=== PATIENT | female | born 1990 | race Caucasian/White ===

== ENCOUNTER 2021-06-24 08:16 | Inpatient (IN) ==
[2021-06-25] MEDS ORDERED: OXYTOCIN 30 UNITS/500 ML BAG IV PRN ×2 (13:28→13:38)
--- NOTE | 2021-06-25 13:53 | History & Physical Report ---
Date of Service June 25, 2021 Assessment & Plan (1) Encounter for induction of labor: (2) Gestational diabetes requiring insulin: (3) Large for gestational age fetus affecting management of mother: (4) Obesity affecting : Plan: 31yo Female at 39W1D here for IOL -will start pitocin -monitor vitals -GBS-, blood type O+ -patient aware she may request epidural Admission and Anticipated Discharge Date Admission Date: June 25, 2021 History of Present Illness Chief Complaint: Induction of Labor Primary Care Provider: Concepcion Urbina MD 31yo Female at 39W1D here for Induction of Labor, complicated by GDM on insulin, obesity, LGA . Patient states occasional contractions greater than every 10min apart, regular movement, denies any bleeding or discharge. Patient has had regular care, regular vitamins. Denies smoking or alcohol during . No other concerns at this time. Allergies Allergy/AdvReac Type Severity Reaction Status Date / Time No Known Allergies Allergy Verified 06/23/21 14:37 Home Medications Medication Instructions Recorded Confirmed Type prenat.vits,sergio,vec-bswc-swmbt 1 tab PO DAILY 11/13/20 06/25/21 History docusate sodium 100 mg capsule 100 mg PO BID 12/16/20 06/25/21 History (Colace) famotidine 20 mg tablet (Pepcid) 20 mg PO BID 12/16/20 06/25/21 History acetone (urine) test (Ketone Urine #50 ea 12/28/20 06/23/21 Rx Test) blood sugar diagnostic #150 ea 12/28/20 06/23/21 Rx lancets 33 gauge (OneTouch Delica #150 ea 12/29/20 06/23/21 Rx Lancets) insulin NPH isoph U-100 human 100 5 unit SUBCUT QPM #15 ml 05/27/21 06/25/21 Rx unit/mL (3 mL) subcutaneous pen (Novolin N Flexpen) pen needle, diabetic 32 gauge x #100 ea 05/27/21 06/23/21 Rx 5/32" (BD Ultra-Fine Joan Pen Needle) Patient History Medical History (Updated 06/25/21 @ 13:51 by Elva Guardado DO) History of chicken pox Ovarian cyst Surgical History S/P left oophorectomy S/P wisdom tooth extraction Family History (Updated 11/13/20 @ 09:03 by Natalee Cuellar) Grandmother (Paternal) Breast cancer Colorectal cancer Father Hypertension Mother Hypercholesteremia Denies family history of Ovarian cancer Social History (Updated 11/13/20 @ 09:05 by Natalee Cuellar) Smoking Status: Never smoker Second Hand Exposure: No; Do You Dip or Chew Tobacco: No; Hx Alcohol Use: No Hx Substance Use: No Preferred Language: Nigerian Communication Ability: Effective Crystallography Teacher Required: No Beliefs That Will Affect Care: None marital status: marital status details: Brain Ward (31) [phone] Current Living Situation: Spouse Current Living Situation Comment: lives with spouse, son, dog current occupational status: employed 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 Denies breast pain. Denies dysuria. Denies headache or changes in vision. Physical Exam Physical Exam: General: Alert, oriented. No acute distress. Cardiac: Regular rate and rhythm, no murmurs/rubs/gallops. Respiratory: Clear to auscultation bilaterally a/p, no wheezes/rales/rhonchi. No increased work of breathing. Symmetrical chest rise. No respiratory distress. Pelvic: Dilation 2.5cm; Effacement 50%; Station -[address] Brenner Lower Extremities: No lower extremity edema or swelling. No deep calf pain. Arina's negative bilaterally Baseline: 143 Variability: moderate Accelerations:present Decelerations:present Results & Data ([facility]) Vital Signs (Past 12 Hours) Vital Signs Temp Pulse Resp BP 06/25/21 13:31 37.3 C 100 H 18 130/88 06/25/21 13:19 100 H 130/88 Laboratory Results OB Labs: Blood Type O Positive 11/20/20 Antibody Screen NEGATIVE 11/20/20 Hemoglobin 12.1 g/dL (12.0-16.0) 11/20/20 Hematocrit 36.4 % (37-47) L 11/20/20 Mean Corpuscular Volume 87.1 fL (80-100) 11/20/20 Platelet Count 443 K/uL (130-400) H 11/20/20 Rubella IgG Antibody Immune (Immune) 11/20/20 Rapid Plasma Reagin Nonreactive (Nonreactive) 11/20/20 Hepatitis B Surface AntigenD Neg (Neg) 11/20/20 HIV (1&2) Ab and P24 Ag, 4th Gener Neg (Neg) 11/20/20 OB Optional Labs: Chlamydia trachomatis RNA NOT DETECTED (NOT DETECTED) 11/20/20 Neisseria gonorrhoeae RNA NOT DETECTED (NOT DETECTED) 11/20/20 Supervising Physician Co-Signing Physician Notes Resident Physician Supervision Note: I interviewed and examined the patient. Discussed with Dr. Guardado and agree with findings and plan as documented in the note. Any exceptions or clarifications are listed here: [None] Documented By: Nimisha Gibbs MD, FACOG Resident Activity Tracking Resident Involvement: Resident Care Provided Care Provided: Adult Hospital Medicine and OB Delivery
[2021-06-25 14:21] LABS: Hematocrit (blood only) 36.5 % (37-47); Mean Corpuscular Hemoglobin 29.5 pg (25-34); Mean Corpuscular Hgb Conc 32.9 g/dL (32-36); Mean Corpuscular Volume 89.7 fL (80-100); Platelet Count 317 K/uL (130-400); RDW Coefficient of Variation 14.5 % (11.5-14.5); RDW Standard Deviation 47.6 fL (36.4-46.3); Red Blood Count 4.07 M/uL (4.2-5.4); White Blood Count 7.74 K/uL (4.8-10.8)
[2021-06-25] MEDS: LACTATED RINGER'S 1,000 ML IV PRN ×2 (14:59→21:35)
[2021-06-25] MEDS ORDERED: ePHEDrine sulfate 50 MG/ML AMP ONE (20:48)
[2021-06-25] MEDS ORDERED: fentaNYL citrate 100 MCG/2 ML VIAL ONE (20:49)
[2021-06-25] MEDS ORDERED: SODIUM CHLORIDE 0.9% INJ 10 ML VIAL ONE (20:49)
[2021-06-25] MEDS ORDERED: fentaNYL 2MCG/ML ROPIVACAINE 1.25MG/ML 100 ML BAG EPI ONE (20:49)
[2021-06-25] MEDS ORDERED: BUPIVACAINE 0.25% 30 ML VIAL ONE (20:49)
--- NOTE | 2021-06-25 21:03 | Anesthesiology Consultation ---
Date of Service June 25, 2021 Assessment & Plan (1) Encounter for pre-operative examination: Chart Review Chart Review: Patient NOT seen in Pre Admission Testing and Acceptable Risk for Labor Epidural Consults Requested none History Height/Weight Height: 5 ft 3 in Weight: 100.698 kg Allergies Allergy/AdvReac Type Severity Reaction Status Date / Time No Known Allergies Allergy Verified 06/23/21 14:37 Medications Home Medications Medication Instructions Recorded Confirmed Last Taken prenat.vits,sergio,dah-uoff-sggoj 1 tab PO DAILY 11/13/20 06/25/21 06/24/21 docusate sodium 100 mg capsule 100 mg PO BID 12/16/20 06/25/21 06/24/21 (Colace) famotidine 20 mg tablet (Pepcid) 20 mg PO BID 12/16/20 06/25/21 06/25/21 acetone (urine) test (Ketone Urine #50 ea 12/28/20 06/23/21 Unknown Test) blood sugar diagnostic #150 ea 12/28/20 06/23/21 Unknown lancets 33 gauge (OneTouch Delica #150 ea 12/29/20 06/23/21 Unknown Lancets) insulin NPH isoph U-100 human 100 5 unit SUBCUT QPM #15 ml 05/27/21 06/25/21 unit/mL (3 mL) subcutaneous pen (Novolin N Flexpen) pen needle, diabetic 32 gauge x #100 ea 05/27/21 06/23/21 Unknown 5/32" (BD Ultra-Fine Joan Pen Needle) Active Medications Generic Name Dose Route Start Last Admin Trade Name Freq PRN Reason Stop Dose Admin Oxytocin 30 units in 500 mls @ 15 mls/hr 06/25/21 13:38 06/25/21 20:32 Pitocin IV 06/27/21 13:37 0.9 units/hr .Q24H PRN 15 mls/hr Labor Induction/Augmentation Titration Protocol 0.9 UNITS/HR Lactated Ringer's 1,000 mls @ 125 mls/hr 06/25/21 13:28 06/25/21 19:17 Lr IV 06/27/21 13:27 125 mls/hr .Q8H PRN Infusion L&D Protocol Protocol Past Medical History Medical History History of chicken pox Ovarian cyst Past Family History Family History Grandmother (Paternal) Breast cancer Colorectal cancer Father Hypertension Mother Hypercholesteremia Denies family history of Ovarian cancer Past Surgical History Surgical History S/P left oophorectomy S/P wisdom tooth extraction Social History Smoking Status: Never smoker Do You Dip or Chew Tobacco: No Hx Alcohol Use: No Hx Substance Use: No Physical Exam Vital Signs Last Vital Signs Temp 37.2 C 06/25/21 19:17 Pulse 86 06/25/21 20:52 Resp 18 06/25/21 19:17 BP 140/92 06/25/21 20:52 Testing Laboratory Results 06/25/21 13:49 06/25/21 14:15 POC Glucose 77
[2021-06-26] MEDS ORDERED: LIDOCAINE 1% LOCAL 20 ML VIAL ONE (02:34)
[2021-06-26] MEDS ORDERED: BENZOCAINE 20% AER SPR 82.5 GM CAN EXT PRN (02:49)
[2021-06-26] MEDS ORDERED: OXYTOCIN 30 UNITS/500 ML BAG IV PRN (02:49)
[2021-06-26] MEDS ORDERED: HYDROCORTISONE ACETATE 25 MG SUPP PR PRN (02:49)
[2021-06-26] MEDS ORDERED: oxyCODONE/ACETAMINOPHEN 5mg/325mg TAB PO PRN (02:49)
[2021-06-26] MEDS ORDERED: DIPHTHERIA/TETANUS/PERTUSSIS 0.5 ML SYR/VIAL IM ONE (02:49)
[2021-06-26] MEDS ORDERED: ACETAMINOPHEN 325 MG TAB PO PRN (02:49)
--- NOTE | 2021-06-26 03:26 | Delivery Summary ---
Vaginal Delivery Summary Date of Service June 26, 2021 Vaginal Delivery Summary and 1st Degree LAC Patient is a 31-year-old 2 para 1-0-0-1 white female EDC of 07/01/[birth year]21 who presents for induction of labor because of gestational diabetes on insulin and suspected large for gestational age . Pitocin augmentation was initiated and prior to rupturing membranes, she received effective epidural analgesia. Membranes were then ruptured for thin meconium stained fluid. She went quickly to full dilation following ruptured membranes. She pushed effectively over intact perineum for delivery of a viable female . A loose nuchal cord was reduced after delivery of the head. Rest of the delivered with mild shoulder dystocia resolved with hyperflexion of the hips. After delivery the was placed on the mother's abdomen for further attention and drying. The cord was clamped and cut after 1 minute. After cord blood was obtained the placenta was expressed intact with a three-vessel cord. A first-degree perineal laceration was repaired with 3-0 chromic in the usual fashion. 1% lidocaine was used to anesthetize the laceration site prior to the repair. Estimated blood loss was 200 cc bleeding was controlled with fundal massage and dilute Pitocin. Mother and infant were doing well after delivery. [facility] [place]ag[place] Delivery Charge Delivery Type Details: and 1st Degree LAC
[2021-06-26] MEDS ORDERED: ONDANSETRON INJ 2 MG/ML 2 ML VIAL IV PRN (03:41)
[2021-06-26] MEDS ORDERED: ePHEDrine sulfate 50 MG/ML AMP IV PRN (03:41)
[2021-06-26] MEDS ORDERED: diphenhydrAMINE 50 MG/ML VIAL IV PRN (03:41)
[2021-06-26] MEDS ORDERED: NALBUPHINE HCL INJ 10 MG/ML AMP IV PRN (03:41)
[2021-06-26] MEDS ORDERED: NALOXONE HCL 0.4 MG/1 ML VIAL/CARP IV PRN (03:41)
[2021-06-26] MEDS ORDERED: NALOXONE HCL 1 MG in SODIUM CHLORIDE 0.9% 1000ML 1,000 ML IV PRN (03:41)
[2021-06-26] MEDS ORDERED: fentaNYL 2MCG/ML ROPIVACAINE 1.25MG/ML 100 ML BAG EPI PRN (03:41)
--- NOTE | 2021-06-26 05:22 | Anesthesia Procedure Note ---
Date of Service June 26, 2021 Anesthesia Post Epidural Note Vital Signs Vital Signs: Temp Pulse Resp BP Pulse Ox 36.6 C 101 H 18 141/75 H 98 06/26/21 04:46 06/26/21 04:31 06/26/21 04:46 06/26/21 04:31 06/26/21 02:41 Notes Mental Status: alert / awake / arousable and participated in evaluation Nausea / Vomiting: adequately controlled Pain: adequately controlled Airway Patency, RR, SpO2: stable & adequate BP & HR: stable & adequate Hydration State: stable & adequate Neuraxial Anesthesia: was administered and sensory block is resolving Anesthetic Complications: no major complications apparent and Pt Satisfied with anesthetic care Epidural: Removed without complications and With tip intact Notes: Epidural site clean, dry and intact. No signs of edema, erythema or bruising at insertion site. Pt instructed to request anesthesia if she has residual lower extremity numbness or if she develops lower extremity pain or weakness, back pain or headache.
[2021-06-26] MEDS: DOCUSATE SODIUM 100 MG CAP PO SCH ×2 (07:51→21:22)
[2021-06-26] MEDS: PRENATAL VITAMIN 1 TAB PO SCH (07:51)
[2021-06-26] MEDS: IBUPROFEN 600 MG TAB PO PRN ×4 (07:51→21:22)
[2021-06-26 23:05] VITALS: O2SAT 99
[2021-06-27 06:37] LABS: Hematocrit (blood only) 31.9 % (37-47); Hemoglobin 10.5 g/dL (12.0-16.0); Mean Corpuscular Hemoglobin 29.8 pg (25-34); Mean Corpuscular Hgb Conc 32.9 g/dL (32-36); Mean Corpuscular Volume 90.6 fL (80-100); Mean Platelet Volume 9.8 fL (7.4-10.4); Platelet Count 307 K/uL (130-400); RDW Coefficient of Variation 14.7 % (11.5-14.5); RDW Standard Deviation 48.4 fL (36.4-46.3); Red Blood Count 3.52 M/uL (4.2-5.4); White Blood Count 8.16 K/uL (4.8-10.8)
[2021-06-27] MEDS: DOCUSATE SODIUM 100 MG CAP PO SCH (08:23)
[2021-06-27] MEDS: PRENATAL VITAMIN 1 TAB PO SCH (08:23)
[2021-06-27] MEDS: IBUPROFEN 600 MG TAB PO PRN (08:23)
[2021-06-27 08:56] VITALS: BP 119/79; PULSE 69; TEMP 98.1
--- NOTE | 2021-06-27 09:11 | Obstetrical Progress Note ---
Date of Service June 27, 2021 Assessment & Plan (1) state: Ready for d/c home today at >24hr from delivery Subjective Ambulation: ambulating normally Voiding: no voiding problems Passing Gas:: Yes Diet Tolerance:: regular diet Lochia:: Small Feeding Type:: breast feeding Physical Exam Constitutional WD/WN, vitals as above Eyes PERRL, conjunctivae normal, anicteric sclerae Neck normal visual inspection Respiratory normal respiratory effort and able to speak in complete sentences; no respiratory distress and no labored breathing Cardiovascular Rate/Rhythm: regular rate and regular rhythm Extremities: no edema Chest (Breasts) Chest: normal inspection of chest Gastrointestinal (Abdomen) Inspection/Auscultation: abdomen normal to inspection Soft, postgravid Psychiatric A+Ox3, euthymic affect Genitourinary OB Exam Abdomen: + fundal height Fundus: + firm and + relation to umbilicus (fundus just below umbilicus); not tender Results & Data ([facility]) Vital Signs (Past 12 Hours) Vital Signs Temp Pulse Resp BP Pulse Ox 06/27/21 07:30 98.1 F 69 18 119/79 06/26/21 23:04 98.6 F 60 16 134/88 99
[2021-06-27] MEDS ORDERED: bisacodyL 5 MG TABEC PO SCH (20:00)
[2021-06-28] MEDS ORDERED: bisacodyL 10 MG SUPP PR PRN
== END 2021-06-27 11:35 | disposition home or self-care (01) | DRG 807 ==
LOC: 4S1 06-25 13:09 → 4E2 06-26 10:40